=== PATIENT | female | born 1940 | race Caucasian/White ===

== ENCOUNTER 2025-01-13 19:39 | Inpatient (IN) | payer MEDICARE, OTHER ==
[~2025-01-13] VITALS: Ht 175.3 cm; Wt 45.8 kg
[~2025-01-13 19:39] MED LIST: HYDR28.32 TP
[2025-01-13 20:21] LABS: BASOPHILS # (AUTO) 0.1 K/uL (0.0-0.2); BASOPHILS % (AUTO) 0.7 % (0.0-2.0); EOSINOPHILS # (AUTO) 0.2 K/uL (0.0-0.7); HEMATOCRIT 32 % (33-45); HEMOGLOBIN 10.6 g/dL (11.5-14.8); LYMPHOCYTES % (AUTO) 20.1 % (20.0-44.0); MEAN CORPUSCULAR HEMOGLOBIN 31 PG (26.0-33.0); MEAN CORPUSCULAR HGB CONC 33 g/dl (31.0-36.0); MEAN CORPUSCULAR VOLUME 95 fL (82-100); MONOCYTES # (AUTO) 0.4 K/uL (0.1-1.30); NEUTROPHILS # (AUTO) 7.3 K/uL (1.8-8.9); NEUTROPHILS % (AUTO) 73.2 % (43.0-81.0); PLATELET COUNT (AUTO) 192 K/uL (150-450); RED BLOOD CELL COUNT(AUTO) 3.41 MIL/uL (4.0-5.2); RED CELL DISTRIBUTION WIDTH 14.8 % (11.5-15.0)
[2025-01-13] MEDS ORDERED: CEFEPIME 1 GM VIAL ONE (20:24)
[2025-01-13] MEDS: CEFEPIME 1 GM in IV D5W 50 ML IV ONE (20:30)
[2025-01-13 20:32] LABS: CALCIUM, SERUM 9.3 mg/dL (8.5-10.1); CARBON DIOXIDE 20 mmol/L (21-32); CHLORIDE 108 mmol/L (98-107); GLUCOSE 239 mg/dL (74-106); POTASSIUM 4.4 mmol/L (3.5-5.1); SODIUM SERUM 140 mmol/L (136-145); UREA NITROGEN, BLOOD 37 mg/dL (7-18)
[2025-01-13 20:38] LABS: APPEARANCE,URINE CLOUDY (CLEAR); BILIRUBIN,URINE NEGATIVE (NEGATIVE); BLOOD, URINE 2+ Ery/uL (NEGATIVE); COLOR,URINE YELLOW (YELLOW); KETONES,URINE NEGATIVE (NEGATIVE); LEUKOCYTE ESTERASE ,URINE 2+ (NEGATIVE); NITRITE, URINE NEGATIVE (NEGATIVE); PH,URINE 7.5 (5.0-8.0); PROTEIN,URINE 2+ mg/dl (NEGATIVE); UGLUCOSE NEGATIVE (NEGATIVE); UROBILINOGEN,URINE 0.2 EU/dL (0.2)
[2025-01-13 20:39] LABS: INR 1.06 (0.91-1.10); PARTIAL THROMBOPLASTIN TIME 24.2 SEC (24.3-34.3); PROTHROMBIN TIME 11.2 SECS (9.2-11.1)
[2025-01-13 20:42] LABS: LACTIC ACID 2.6 mmol/L (0.4-2.0)
[2025-01-13 20:51] LABS: ALANINE AMINOTRANSFERASE 7 U/L (12-78); ALBUMIN 3.4 g/dL (3.4-5.0); ALKALINE PHOSPHATASE 52 U/L (46-116); ASPARTATE AMINOTRANSFERASE 12 U/L (15-37); BILIRUBIN,DIRECT 0.1 mg/dL (0.0-0.2); BILIRUBIN,TOTAL 0.3 mg/dL (0.2-1.0); TOTAL PROTEIN, SERUM 7.2 g/dL (6.4-8.2)
[2025-01-13 20:55] LABS: ADD URINE CULTURE YES; BACTERIA,URINE Many /HPF (None Seen); WBC,URINE TOO NUMEROUS TO COUN /HPF (0-3)
[2025-01-13 20:57] LABS: RBC,URINE 51-80 /HPF (0-2)
[2025-01-13 20:58] LABS: SQUAMOUS EPITHELIAL CELL,UR Moderate /HPF (None Seen)
[2025-01-13] MEDS ORDERED: VANCOMYCIN 1 GM /D5W 250 ML PB IV ONE (21:08)
[2025-01-13] MEDS: VANCOMYCIN 1 GM in IV D5W 250 ML IV ONE (21:15)
[2025-01-13] MEDS ORDERED: CEFTRIAXONE 1 G in IV D5W 50 ML IV ONE (22:00)
[2025-01-13] MEDS ORDERED: diphenhydrAMINE HCL 50 MG/ML VIAL ONE (22:10)
[2025-01-13] MEDS ORDERED: methylPREDNISolone SOD SUCC 125 MG/2ML VIAL ONE (22:10)
[2025-01-13] MEDS: methylPREDNISolone SOD SUCC 125 MG/2ML VIAL IV ONE (22:15)
[2025-01-13] MEDS: diphenhydrAMINE HCL 50 MG/ML VIAL IV ONE (22:16)
[2025-01-13 22:50] VITALS: BP 137/65; TEMP 97.3; O2SAT 99
[2025-01-13] MEDS ORDERED: Z GUARD REMEDY 4 OZ OINT TP PRN (23:00)
[2025-01-13] MEDS ORDERED: MAGNESIUM HYDROXIDE 30 ML UDC PO PRN (23:00)
[2025-01-13] MEDS ORDERED: DEXTROSE 50%-WATER 50 ML DISP.SYRIN IV PRN (23:00)
[2025-01-13] MEDS: IV 1/2NS 1000 ML 1,000 ML IV ONE (23:48)
[2025-01-14] VITALS (8 sets, daily range): BP systolic 111–128; BP diastolic 51–86; TEMP 97.9–98.6; O2SAT 97–99
[2025-01-14] MEDS: ENOXAPARIN SODIUM 40 MG/0.4 ML DISP.SYRIN SQ SCH (00:09)
[2025-01-14 06:34] LABS: BASOPHILS % (AUTO) 0.2 % (0.0-2.0); HEMATOCRIT 32 % (33-45); HEMOGLOBIN 10.7 g/dL (11.5-14.8); LYMPHOCYTES # (AUTO) 1.2 K/uL (0.8-4.8); LYMPHOCYTES % (AUTO) 16.1 % (20.0-44.0); MEAN CORPUSCULAR HEMOGLOBIN 32 PG (26.0-33.0); MEAN CORPUSCULAR HGB CONC 34 g/dl (31.0-36.0); MEAN CORPUSCULAR VOLUME 94 fL (82-100); MONOCYTES % (AUTO) 0.5 % (2.0-12.0); NEUTROPHILS # (AUTO) 6.4 K/uL (1.8-8.9); NEUTROPHILS % (AUTO) 83.2 % (43.0-81.0); PLATELET COUNT (AUTO) 165 K/uL (150-450); RED BLOOD CELL COUNT(AUTO) 3.38 MIL/uL (4.0-5.2); RED CELL DISTRIBUTION WIDTH 14.9 % (11.5-15.0); WHITE BLOOD COUNT (AUTO) 7.7 K/uL (4.3-11.0)
[2025-01-14 06:51] LABS: CALCIUM, SERUM 8.9 mg/dL (8.5-10.1); CREATININE 1.1 mg/dL (0.6-1.3); MAGNESIUM 1.6 mg/dL (1.8-2.4); PHOSPHORUS 3.7 mg/dL (2.5-4.9); POTASSIUM 4.5 mmol/L (3.5-5.1)
[2025-01-14] MEDS: INSULIN REGULAR, HUMAN 100 UNIT/ML 3 ML VIAL SQ PRN (06:52)
[2025-01-14 06:57] LABS: THYROID STIMULATING HORMONE 0.66 uIU/mL (0.358-3.74)
[2025-01-14] MEDS: PANTOPRAZOLE 40 MG TABLET.DR PO SCH (07:36)
[2025-01-14] MEDS: BLOOD SUGAR DIAGNOSTIC 1 EACH STRIP IN SCH (07:41)
[2025-01-14] MEDS: CEFTRIAXONE 1 G in IV D5W 50 ML IV SCH (08:01)
[2025-01-14] MEDS: MAGNESIUM OXIDE 400 MG TABLET PO ONE (11:20)
[2025-01-14] MEDS ORDERED: LISI10TA29 PO (13:22)
[2025-01-14] MEDS ORDERED: BLOO-668 IN (13:22)
[2025-01-14] MEDS ORDERED: AMLO-212 PO (13:22)
[2025-01-14] MEDS ORDERED: DORZ10DR11 EACHEYE (13:22)
[2025-01-14] MEDS ORDERED: MAG-151 PO (13:22)
[2025-01-14] MEDS ORDERED: LOPE2CAP PO (13:22)
[2025-01-14] MEDS ORDERED: TRAM50TA2 PO (13:22)
[2025-01-14] MEDS ORDERED: AMIN30LI25 PO (13:22)
[2025-01-14] MEDS ORDERED: SITA100T PO (13:22)
[2025-01-14] MEDS ORDERED: MAG-55 PO (13:22)
[2025-01-14] MEDS ORDERED: CETI10TA14 PO (13:22)
[2025-01-14] MEDS ORDERED: MULT-213 PO (13:22)
[2025-01-14] MEDS ORDERED: CYAN10006 IM (13:22)
[2025-01-14] MEDS ORDERED: DOCU100C36 PO (13:22)
[2025-01-14] MEDS ORDERED: MIRT-91 PO (13:22)
[2025-01-14] MEDS ORDERED: SERT25TA5 PO (13:22)
[2025-01-14] MEDS ORDERED: BRIM5DRO LEFTEYE (13:22)
[2025-01-14] MEDS ORDERED: CARV3.122 PO (13:22)
[2025-01-14] MEDS ORDERED: LATA7.5D LEFTEYE (13:22)
[2025-01-14] MEDS ORDERED: GUAI-1216 PO (13:22)
[2025-01-14] MEDS ORDERED: ACET-3117 PO (13:22)
[2025-01-14] MEDS ORDERED: METF-442 PO (13:22)
[2025-01-14] MEDS ORDERED: FERR325T24 PO (13:22)
[2025-01-14] MEDS ORDERED: MELA3TAB41 PO (13:22)
[2025-01-15 07:00] VITALS: BP 160/78; TEMP 97.3; O2SAT 99
[2025-01-15 09:16] LABS: BASOPHILS % (AUTO) 0.6 % (0.0-2.0); EOSINOPHILS # (AUTO) 0.1 K/uL (0.0-0.7); EOSINOPHILS % (AUTO) 0.9 % (0.0-6.0); HEMATOCRIT 37 % (33-45); HEMOGLOBIN 12.2 g/dL (11.5-14.8); LYMPHOCYTES # (AUTO) 2.6 K/uL (0.8-4.8); MEAN CORPUSCULAR HEMOGLOBIN 31 PG (26.0-33.0); MEAN CORPUSCULAR HGB CONC 33 g/dl (31.0-36.0); MEAN CORPUSCULAR VOLUME 94 fL (82-100); MONOCYTES # (AUTO) 0.4 K/uL (0.1-1.30); MONOCYTES % (AUTO) 4.7 % (2.0-12.0); NEUTROPHILS # (AUTO) 5.6 K/uL (1.8-8.9); NEUTROPHILS % (AUTO) 63.8 % (43.0-81.0); PLATELET COUNT (AUTO) 218 K/uL (150-450); RED BLOOD CELL COUNT(AUTO) 3.96 MIL/uL (4.0-5.2); RED CELL DISTRIBUTION WIDTH 15.2 % (11.5-15.0); WHITE BLOOD COUNT (AUTO) 8.7 K/uL (4.3-11.0)
[2025-01-15 09:20] LABS: CALCIUM, SERUM 9.3 mg/dL (8.5-10.1); CREATININE 0.7 mg/dL (0.6-1.3); MAGNESIUM 1.9 mg/dL (1.8-2.4); PHOSPHORUS 2.9 mg/dL (2.5-4.9); POTASSIUM 3.9 mmol/L (3.5-5.1)
[2025-01-15 11:30] VITALS: BP 124/97; TEMP 98.2; O2SAT 99
[2025-01-15] MEDS: SOD FERRIC GLUC 125 MG in IV NS 0.9% 100 ML IV SCH (14:51)
[2025-01-15] MEDS: ONDANSETRON HCL/PF 4 MG/2 ML VIAL IVP PRN (15:33)
[2025-01-15] MEDS: ACETAMINOPHEN 325 MG TABLET PO PRN (15:34)
[2025-01-15 16:00] VITALS: BP 145/69; TEMP 97.3; O2SAT 99
[2025-01-15] MEDS: LISINOPRIL (10MG) 10 MG TABLET PO SCH (17:20)
[2025-01-15] MEDS: CARVEDILOL 3.125 MG TABLET PO SCH (17:20)
[2025-01-15] MEDS: TIMOLOL MAL/DORZOLAM HCL OPHTH 10 ML BOTTLE EACHEYE SCH (17:21)
[2025-01-15] MEDS: BRIMONIDINE TARTRATE OPHT SOLN 5 ML BOTTLE EACHEYE SCH (17:22)
[2025-01-15] MEDS: HYDROCORTISONE 1% CREAM 28.35 GM TUBE TP SCH (17:23)
[2025-01-15 20:00] VITALS: BP 153/91; TEMP 97.5; O2SAT 98
[2025-01-15] MEDS: SERTRALINE HCL 25 MG TABLET PO SCH (21:19)
[2025-01-15] MEDS: LATANOPROST EYE DROP 0.005% 2.5 ML BOTTLE OP SCH (21:19)
[2025-01-16 05:30] VITALS: BP_SYST 158; BP_SYST 160; BP_DIAS 78; BP_DIAS 85; O2SAT 98
[2025-01-16 06:55] LABS: CREATININE 0.8 mg/dL (0.6-1.3); POTASSIUM 3.7 mmol/L (3.5-5.1)
[2025-01-16 08:00] VITALS: BP 173/99; TEMP 98.1; O2SAT 99
[2025-01-16] MEDS: DOCUSATE SODIUM 100 MG CAPSULE PO SCH (08:03)
[2025-01-16] MEDS: FERROUS SULFATE (325 MG) 325 MG/TAB TABLET PO SCH (08:03)
[2025-01-16] MEDS: AMLODIPINE BESYLATE 5 MG TABLET PO SCH (08:04)
[2025-01-16 10:00] VITALS: BP 138/72
[2025-01-16 16:00] VITALS: BP 150/76; TEMP 97.5; O2SAT 98
[2025-01-16 20:00] VITALS: BP 147/66; TEMP 98.2; O2SAT 98
[2025-01-17 06:55] LABS: BASOPHILS # (AUTO) 0.1 K/uL (0.0-0.2); BASOPHILS % (AUTO) 0.7 % (0.0-2.0); EOSINOPHILS # (AUTO) 0.3 K/uL (0.0-0.7); EOSINOPHILS % (AUTO) 4.2 % (0.0-6.0); HEMATOCRIT 36 % (33-45); HEMOGLOBIN 11.7 g/dL (11.5-14.8); LYMPHOCYTES # (AUTO) 2.5 K/uL (0.8-4.8); LYMPHOCYTES % (AUTO) 33.5 % (20.0-44.0); MEAN CORPUSCULAR HEMOGLOBIN 32 PG (26.0-33.0); MEAN CORPUSCULAR HGB CONC 33 g/dl (31.0-36.0); MEAN CORPUSCULAR VOLUME 96 fL (82-100); MONOCYTES # (AUTO) 0.5 K/uL (0.1-1.30); MONOCYTES % (AUTO) 7.4 % (2.0-12.0); NEUTROPHILS % (AUTO) 54.2 % (43.0-81.0); PLATELET COUNT (AUTO) 177 K/uL (150-450); RED BLOOD CELL COUNT(AUTO) 3.73 MIL/uL (4.0-5.2); RED CELL DISTRIBUTION WIDTH 15.6 % (11.5-15.0); WHITE BLOOD COUNT (AUTO) 7.3 K/uL (4.3-11.0)
[2025-01-17 06:56] LABS: CALCIUM, SERUM 8.8 mg/dL (8.5-10.1); CREATININE 0.7 mg/dL (0.6-1.3); POTASSIUM 3.6 mmol/L (3.5-5.1)
[2025-01-17 07:00] VITALS: BP 171/81; TEMP 98.1; O2SAT 98
[2025-01-17 08:00] VITALS: BP 171/81; TEMP 98.1; O2SAT 98
[2025-01-17 08:30] VITALS: BP 171/81; TEMP 98.1; O2SAT 98
[2025-01-17 09:40] VITALS: BP 140/67
[2025-01-17] MEDS ORDERED: NITR100C6 PO (13:32)
[2025-01-17] MEDS ORDERED: AMLO10TA4 PO (13:32)
[2025-01-17 16:00] VITALS: BP 121/63; TEMP 98.2; O2SAT 99
[2025-01-17 16:33] VITALS: BP 121/63
== END 2025-01-17 19:25 | disposition home health service (06) | DRG 74 ==
LOC: ER 19:56 → TELE 22:20 → MED 01-16 03:37
PROVIDERS: ADMIT Nurse Practitioner Family; ATTEND Nurse Practitioner Family
DX: G90.89 Other disorders of autonomic nervous system (principal); N17.9 Acute kidney failure, unspecified; N39.0 Urinary tract infection, site not specified; I69.354 Hemiplegia and hemiparesis following cerebral infarction affecting left non-dominant side; E87.20 Acidosis, unspecified; E44.1 Mild protein-calorie malnutrition; Z68.1 Body mass index [BMI] 19.9 or less, adult; E86.0 Dehydration; I48.91 Unspecified atrial fibrillation; D64.9 Anemia, unspecified; D32.9 Benign neoplasm of meninges, unspecified; E11.9 Type 2 diabetes mellitus without complications; F03.90 Unspecified dementia, unspecified severity, without behavioral disturbance, psychotic disturbance, mood disturbance, and anxiety; H40.9 Unspecified glaucoma; I10 Essential (primary) hypertension; Z79.84 Long term (current) use of oral hypoglycemic drugs; E88.09 Other disorders of plasma-protein metabolism, not elsewhere classified
CPT/HCPCS: 36415; 70450-TC; 71045-TC; 80048-TC; 80061-TC; 80076-TC; 81001; 82962-TC; 83540-TC; 83605-TC; 83735-TC; 83880; 84100-TC; 84443-TC; 84484-TC; 85025-TC; 85730-TC; 87040-TC; 87081-TC; 87086-TC; 87186-TC; 93307-TC; 97110-TC; 97112-TC; 97530-TC; A4223; G0378; J0692; J0696; J1200; J1650; J1815; J2405; J2916; J2919; J3370; J3490; J7030; J7050; J7060